=== PATIENT | female | born 1950 | race Caucasian/White ===

== ENCOUNTER 2017-02-06 06:35 | Day surgery (SDC) | payer SELFPAY ==
[~2017-02-06] VITALS: Ht 162.6 cm; Wt 49.4 kg
[~2017-02-06 06:35] MED LIST: ADVIL200 MG PO; XANAX0.25 MG PO
[2017-02-06] MEDS ORDERED: NORCO1 TA1 PO (10:32)
[2017-02-06 11:32] VITALS: BP 127/77
== END 2017-02-06 11:10 | disposition home or self-care (01) | DRG 950 ==
LOC: ORM 06:35
PROVIDERS: ATTEND Surgery
PROC: 0JPT0XZ Removal of Tunneled Vascular Access Device from Trunk Subcutaneous Tissue and Fascia, Open Approach (ICD-10-PCS; principal; 2017-02-06)
PROC: 02PY33Z Removal of Infusion Device from Great Vessel, Percutaneous Approach (ICD-10-PCS; 2017-02-06)
DX: Z45.2 Encounter for adjustment and management of vascular access device (principal); Z85.43 Personal history of malignant neoplasm of ovary; Z90.710 Acquired absence of both cervix and uterus